=== PATIENT | female | born 1995 | race Caucasian/White ===

== ENCOUNTER 2019-12-19 01:06 | Emergency (ER) | payer SELFPAY ==
[2019-12-19] MEDS ORDERED: Ondansetron PF 4 MG/2 ML Vial ONE (02:05)
[2019-12-19] MEDS ORDERED: Acetaminophen 500 MG TAB ONE (04:27)
[2019-12-19] MEDS ORDERED: diphenhydrAMINE 50 MG/ML VIAL ONE (04:27)
[2019-12-19] MEDS ORDERED: Metoclopramide HCl 10 MG/2 ML VIAL ONE (04:27)
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
== END 2019-12-19 05:50 | disposition home or self-care (01) ==
LOC: ERS 01:06
DX: R51 Headache (principal); J45.909 Unspecified asthma, uncomplicated; V89.2XXA Person injured in unspecified motor-vehicle accident, traffic, initial encounter
CPT/HCPCS: 70450; 96361; 96365; 96375; J1200; J2405; J2765